=== PATIENT | male | born 1930 | race Caucasian/White ===

== ENCOUNTER 2018-02-15 11:48 | Emergency (ER) | payer MEDICARE, OTHER ==
[~2018-02-15] VITALS: Ht 182.9 cm; Wt 86.2 kg
[~2018-02-15 11:48] MED LIST: ALBIPROI INH; AMOCLA500 PO; ASCO1ER PO; ASPI325; ASPI81EC; ASPI81EC PO; BUPR150ER PO; BUPR150T2 PO; CAPHYD; CARB50; CARB50 PO; CIPR500 PO; Cipro500 MG PO; DIGO.125 PO; DOCU100; DOCU100 PO; FERR325 PO; FINA5 PO; FLUO20 PO; FLUSAL5005 IH; FLUT.05NI; GLIM2 PO; GLIMEPIRIDE PO; HYDACE5 PO; Hair, Skin & N1 EACH PO; IRON PO; LIDO5TP TOP; LISI10; MESA400ER; MESA400ER PO; METO100ER; METO25ER PO; METO50 PO; METO50ER; METO50ER PO; Milk Of Ma400 MG/5 M PO; NEBI5 PO; NYST100SU MT; OMEP20ER PO; OXYACE7.5T PO; OXYC10ER PO; OXYC15ER PO; OXYC5 PO; PANT40 PO; PRED20 PO; PROM25 PO; RXHYDACE PO; TEMA30 PO; TETR250 PO
[2018-02-15 12:17] LABS: BASOPHILS ABSOLUTE AUTO 0.03 K/mm3 (0.00-0.23); BASOPHILS PERCENT AUTO 1 % (0-2); EOSINOPHILS ABSOLUTE AUTO 0.18 K/mm3 (0.00-0.68); EOSINOPHILS PERCENT AUTO 3 % (0-6); Hematocrit 37.7 % (37.0-53.0); Hemoglobin 11.9 g/dL (13.5-17.5); IMMATURE GRAN ABSOLUTE AUTO 0.03 K/mm3 (0.00-0.10); IMMATURE GRAN PERCENT AUTO 1 % (0-1); LYMPHOCYTES ABSOLUTE AUTO 1.01 K/mm3 (0.84-5.20); LYMPHOCYTES PERCENT AUTO 16 % (21-46); MONOCYTES ABSOLUTE AUTO 0.57 K/mm3 (0.16-1.47); MONOCYTES PERCENT AUTO 9 % (4-13); Mean Corpuscular HGB Conc 31.6 g/dL (31.5-36.5); Mean Corpuscular Volume 92 fL (80-100); NEUTROPHILS ABSOLUTE AUTO 4.36 K/mm3 (1.96-9.15); NEUTROPHILS PERCENT AUTO 71 % (41-73); Platelet Count 197 K/mm3 (150-400); RDW Coefficient Variation 13.4 % (11.7-14.2); RDW Standard Deviation 45.8 fL (35.1-46.3); White Blood Cell Count 6.18 K/mm3 (4.00-11.30)
[2018-02-15 12:43] LABS: Alanine Aminotransfer (ALT/SGP 21 U/L (12-78); Albumin, Blood 3.3 g/dL (3.4-5.0); Albumin/Globulin Ratio 0.9 (0.8-1.8); Alk Phos 91 U/L (50-136); Anion Gap 5 mmol/L (6-16); Aspartate Aminotrans (AST/SGOT 20 U/L (12-37); Bilirubin, Total 0.3 mg/dL (0.1-1.0); Blood Urea Nitrogen 19 mg/dL (8-24); Bun/Creatinine Ratio 18.6 (12.0-20.0); CO2, Blood 31 mmol/L (21-32); Calcium, Blood 8.8 mg/dL (8.5-10.1); Chloride, Blood 103 mmol/L (98-108); Creatinine, Blood 1.02 mg/dL (0.60-1.20); Globulin, Blood 3.8 g/dL (2.2-4.0); Glomerular Filtration Rate >60 (60-); Glucose, Blood 166 mg/dL (70-99); Potassium, Blood 4.3 mmol/L (3.5-5.5); Sodium, Blood 139 mmol/L (136-145); Total Protein, Blood 7.1 g/dL (6.4-8.2); Troponin I <0.015 ng/mL (0.000-0.040)
[2018-02-15] MEDS ORDERED: OXYC1TAB11 (12:56)
[2018-02-15 13:55] LABS: International Normalized Ratio 0.96
== END 2018-02-15 14:14 | disposition left against medical advice (07) ==
LOC: ER 11:48
PROVIDERS: Emergency Medicine
DX: R41.0 Disorientation, unspecified (principal); Z88.2 Allergy status to sulfonamides; Z79.82 Long term (current) use of aspirin; Z79.899 Other long term (current) drug therapy; Z79.891 Long term (current) use of opiate analgesic; Z79.2 Long term (current) use of antibiotics; Z87.891 Personal history of nicotine dependence
CPT/HCPCS: 36415; 71046; 80053; 84484; 85025; 85610; 93005; 93010; 99283

== ENCOUNTER 2018-06-13 13:50 | Day surgery (SDC) | payer MEDICARE, OTHER ==
[~2018-06-13] VITALS: Ht 182.9 cm; Wt 93.1 kg
[~2018-06-13 13:50] MED LIST changes: +OXYC1TAB11
== END 2018-06-13 15:18 | disposition home or self-care (01) ==
LOC: ORSCSDS 13:50
PROVIDERS: Anesthesiology
PROC: 3E0R33Z Introduction of Anti-inflammatory into Spinal Canal, Percutaneous Approach (ICD-10-PCS; principal; 2018-06-13 15:15)
DX: M51.16 Intervertebral disc disorders with radiculopathy, lumbar region (principal); E11.9 Type 2 diabetes mellitus without complications; I25.10 Atherosclerotic heart disease of native coronary artery without angina pectoris; Z95.0 Presence of cardiac pacemaker; I48.91 Unspecified atrial fibrillation; J45.909 Unspecified asthma, uncomplicated; Z87.891 Personal history of nicotine dependence; Z79.82 Long term (current) use of aspirin; Z79.899 Other long term (current) drug therapy
CPT/HCPCS: J1040; J2001

== ENCOUNTER 2018-07-17 11:22 | Emergency (ER) | payer MEDICARE, OTHER ==
[~2018-07-17] VITALS: Ht 182.9 cm; Wt 90.7 kg
[2018-07-17] MEDS ORDERED: LIDO5TO TOP (12:09)
[2018-07-17] MEDS ORDERED: ASPI81CH PO (12:09)
[2018-07-17] MEDS ORDERED: METO50ER PO (12:09)
[2018-07-17] MEDS ORDERED: Hair, Skin & N1 EACH PO (12:09)
== END 2018-07-17 14:16 | disposition home or self-care (01) ==
LOC: ER 11:22
DX: M25.511 Pain in right shoulder (principal); G89.29 Other chronic pain; Z88.2 Allergy status to sulfonamides; Z88.8 Allergy status to other drugs, medicaments and biological substances; Z79.899 Other long term (current) drug therapy; Z79.82 Long term (current) use of aspirin; Z87.891 Personal history of nicotine dependence
CPT/HCPCS: 99282

== ENCOUNTER 2018-07-19 12:19 | Inpatient (IN) | payer MEDICARE, OTHER ==
[~2018-07-19] VITALS: Ht 182.9 cm; Wt 99.8 kg
[~2018-07-19 12:19] MED LIST changes: +ASPI81CH PO; +LIDO5TO TOP
[2018-07-19 12:36] LABS: BASOPHILS ABSOLUTE AUTO 0.02 K/mm3 (0.00-0.23); BASOPHILS PERCENT AUTO 0 % (0-2); EOSINOPHILS ABSOLUTE AUTO 0.01 K/mm3 (0.00-0.68); EOSINOPHILS PERCENT AUTO 0 % (0-6); Hematocrit 36.3 % (37.0-53.0); Hemoglobin 11.6 g/dL (13.5-17.5); IMMATURE GRAN ABSOLUTE AUTO 0.11 K/mm3 (0.00-0.10); IMMATURE GRAN PERCENT AUTO 1 % (0-1); LYMPHOCYTES ABSOLUTE AUTO 0.28 K/mm3 (0.84-5.20); LYMPHOCYTES PERCENT AUTO 2 % (21-46); MONOCYTES ABSOLUTE AUTO 0.99 K/mm3 (0.16-1.47); MONOCYTES PERCENT AUTO 5 % (4-13); Mean Corpuscular HGB 29.7 pg (26.0-34.0); Mean Corpuscular Volume 93 fL (80-100); Mean Platelet Volume 9.9 fL (9.1-12.4); NEUTROPHILS ABSOLUTE AUTO 17.29 K/mm3 (1.96-9.15); NEUTROPHILS PERCENT AUTO 92 % (41-73); Platelet Count 169 K/mm3 (150-400); RDW Coefficient Variation 13.5 % (11.7-14.2); RDW Standard Deviation 46.2 fL (35.1-46.3)
[2018-07-19 12:50] LABS: Alanine Aminotransfer (ALT/SGP 23 U/L (12-78); Albumin/Globulin Ratio 0.8 (0.8-1.8); Alk Phos 81 U/L (50-136); Anion Gap 6 mmol/L (6-16); Aspartate Aminotrans (AST/SGOT 20 U/L (12-37); Bilirubin, Total 0.7 mg/dL (0.1-1.0); Blood Urea Nitrogen 16 mg/dL (8-24); Bun/Creatinine Ratio 15.2 (12.0-20.0); CO2, Blood 30 mmol/L (21-32); Calcium, Blood 8.2 mg/dL (8.5-10.1); Chloride, Blood 99 mmol/L (98-108); Creatinine, Blood 1.05 mg/dL (0.60-1.20); Globulin, Blood 3.6 g/dL (2.2-4.0); Glomerular Filtration Rate >60 (60-); Glucose, Blood 183 mg/dL (70-99); Potassium, Blood 4.2 mmol/L (3.5-5.5); Sodium, Blood 135 mmol/L (136-145); Total Protein, Blood 6.6 g/dL (6.4-8.2)
[2018-07-19 12:51] LABS: International Normalized Ratio 1.01; Prothrombin Time Results 10.4 Sec (9.7-11.5)
[2018-07-19 14:24] LABS: Source, Urine Catheter
[2018-07-19 14:29] LABS: Appearance, Urine Clear (Clear); Bilirubin, Urine Neg (Neg); Blood, Urine 1+ (Neg); Color, Urine Yellow (P-Yellow); Glucose Qualitative, Urine 1+ (Neg); Ketones, Urine Neg (Neg); Leukocyte Esterase, Urine 2+ (Neg); Nitrite, Urine Neg (Neg); Protein, Urine 1+ (Neg); Urobilinogen, Urine NORM (Normal)
[2018-07-19 15:07] LABS: Bacteria Few /hpf; Squamous Epithelial Cells Few /hpf (Few); Transitional Epithelial Cells Rare /hpf (0-Rare); White Blood Cells, Urine 25-50 /hpf (0-5)
[2018-07-20 05:51] LABS: BASOPHILS ABSOLUTE AUTO 0.02 K/mm3 (0.00-0.23); BASOPHILS PERCENT AUTO 0 % (0-2); EOSINOPHILS ABSOLUTE AUTO 0.01 K/mm3 (0.00-0.68); EOSINOPHILS PERCENT AUTO 0 % (0-6); Hemoglobin 10.8 g/dL (13.5-17.5); IMMATURE GRAN ABSOLUTE AUTO 0.07 K/mm3 (0.00-0.10); IMMATURE GRAN PERCENT AUTO 1 % (0-1); LYMPHOCYTES ABSOLUTE AUTO 0.68 K/mm3 (0.84-5.20); LYMPHOCYTES PERCENT AUTO 5 % (21-46); MONOCYTES ABSOLUTE AUTO 0.83 K/mm3 (0.16-1.47); MONOCYTES PERCENT AUTO 6 % (4-13); Mean Corpuscular HGB 29.1 pg (26.0-34.0); Mean Corpuscular HGB Conc 31.8 g/dL (31.5-36.5); Mean Corpuscular Volume 92 fL (80-100); Mean Platelet Volume 10.4 fL (9.1-12.4); NEUTROPHILS ABSOLUTE AUTO 13.04 K/mm3 (1.96-9.15); NEUTROPHILS PERCENT AUTO 89 % (41-73); Platelet Count 172 K/mm3 (150-400); RDW Coefficient Variation 13.5 % (11.7-14.2); RDW Standard Deviation 45.4 fL (35.1-46.3); Red Blood Cell Count 3.71 M/mm3 (4.30-5.90); White Blood Cell Count 14.65 K/mm3 (4.00-11.30)
[2018-07-20 06:24] LABS: Alanine Aminotransfer (ALT/SGP 21 U/L (12-78); Albumin, Blood 2.7 g/dL (3.4-5.0); Albumin/Globulin Ratio 0.8 (0.8-1.8); Alk Phos 68 U/L (50-136); Anion Gap 6 mmol/L (6-16); Aspartate Aminotrans (AST/SGOT 23 U/L (12-37); Blood Urea Nitrogen 15 mg/dL (8-24); Bun/Creatinine Ratio 15.6 (12.0-20.0); CO2, Blood 30 mmol/L (21-32); Calcium, Blood 8.5 mg/dL (8.5-10.1); Chloride, Blood 102 mmol/L (98-108); Creatinine, Blood 0.96 mg/dL (0.60-1.20); Globulin, Blood 3.6 g/dL (2.2-4.0); Glomerular Filtration Rate >60 (60-); Glucose, Blood 106 mg/dL (70-99); Potassium, Blood 3.6 mmol/L (3.5-5.5); Sodium, Blood 138 mmol/L (136-145); Total Protein, Blood 6.3 g/dL (6.4-8.2); Troponin I <0.015 ng/mL (0.000-0.040)
[2018-07-20 12:08] LABS: PCO2 Arterial 42.1 mmHg (35-45); PO2 Arterial 61.8 mmHg (80-100)
[2018-07-21 09:33] LABS: BASOPHILS ABSOLUTE AUTO 0.02 K/mm3 (0.00-0.23); BASOPHILS PERCENT AUTO 0 % (0-2); EOSINOPHILS ABSOLUTE AUTO 0.03 K/mm3 (0.00-0.68); EOSINOPHILS PERCENT AUTO 0 % (0-6); Hematocrit 39.2 % (37.0-53.0); Hemoglobin 12.5 g/dL (13.5-17.5); IMMATURE GRAN ABSOLUTE AUTO 0.07 K/mm3 (0.00-0.10); IMMATURE GRAN PERCENT AUTO 1 % (0-1); LYMPHOCYTES ABSOLUTE AUTO 0.52 K/mm3 (0.84-5.20); LYMPHOCYTES PERCENT AUTO 4 % (21-46); MONOCYTES ABSOLUTE AUTO 0.71 K/mm3 (0.16-1.47); MONOCYTES PERCENT AUTO 5 % (4-13); Mean Corpuscular HGB 29.5 pg (26.0-34.0); Mean Corpuscular HGB Conc 31.9 g/dL (31.5-36.5); Mean Corpuscular Volume 93 fL (80-100); Mean Platelet Volume 10.1 fL (9.1-12.4); NEUTROPHILS ABSOLUTE AUTO 12.52 K/mm3 (1.96-9.15); NEUTROPHILS PERCENT AUTO 90 % (41-73); Platelet Count 248 K/mm3 (150-400); RDW Coefficient Variation 13.5 % (11.7-14.2); RDW Standard Deviation 45.4 fL (35.1-46.3); Red Blood Cell Count 4.24 M/mm3 (4.30-5.90); White Blood Cell Count 13.87 K/mm3 (4.00-11.30)
[2018-07-21] MEDS ORDERED: METO50 PO (12:17)
[2018-07-21] MEDS ORDERED: ALBU3IS INH (12:19)
[2018-07-21] MEDS ORDERED: ACIDOPHILUS LA1 EACH PO (12:20)
[2018-07-21] MEDS ORDERED: FURO20 PO (12:21)
[2018-07-21] MEDS ORDERED: CEFD300 PO (12:21)
== END 2018-07-21 15:09 | disposition home health service (06) | DRG 689 ==
LOC: ER 12:19 → MEDS 14:00 → ENPENDDIS 07-21 11:58 → MEDS 07-21 15:09
PROVIDERS: Emergency Medicine; Internal Medicine
DX: N39.0 Urinary tract infection, site not specified (principal); G92 Toxic encephalopathy; J96.01 Acute respiratory failure with hypoxia; K51.90 Ulcerative colitis, unspecified, without complications; E87.1 Hypo-osmolality and hyponatremia; I48.2 Chronic atrial fibrillation; I25.10 Atherosclerotic heart disease of native coronary artery without angina pectoris; E78.5 Hyperlipidemia, unspecified; T40.2X5A Adverse effect of other opioids, initial encounter; G89.4 Chronic pain syndrome; Z51.5 Encounter for palliative care; J44.9 Chronic obstructive pulmonary disease, unspecified; Z95.1 Presence of aortocoronary bypass graft; Z95.0 Presence of cardiac pacemaker; Z79.82 Long term (current) use of aspirin; Z79.891 Long term (current) use of opiate analgesic; Z79.899 Other long term (current) drug therapy; Z88.2 Allergy status to sulfonamides; Z88.8 Allergy status to other drugs, medicaments and biological substances; Z87.891 Personal history of nicotine dependence
CPT/HCPCS: 36415; 36600; 51702; 70450; 71046; 80053; 81001; 82803; 83605; 83880; 84484; 85025; 85610; 85730; 87040; 87081; 87086; 92610; 93005; 93010; 93306; 94640; 94760; 96365; 96375; 97116; 97162; 97166; 97530; 97535; 99285-25; G8978; G8979; G8987; G8988; G8996; G8997; G8998; J0456; J0696; J1200; J1630; J1650; J1940; J7030; J7050

== ENCOUNTER 2018-10-22 14:32 | Emergency (ER) | payer MEDICARE, OTHER ==
[~2018-10-22] VITALS: Ht 182.9 cm; Wt 74.8 kg
[~2018-10-22 14:32] MED LIST changes: +ACIDOPHILUS LA1 EACH PO; -ALBIPROI INH; +ALBU3IS INH; -ASPI81CH PO; +Aspirin EC81 MG PO; +Budeprion Xl300 MG PO; +CEFD300 PO; +COMBIVENT RESPIM4 GM INH; -FLUSAL5005 IH; +FLUT1DIS5 INH; +FURO20 PO
[2018-10-22 15:26] LABS: BASOPHILS ABSOLUTE AUTO 0.02 K/mm3 (0.00-0.23); BASOPHILS PERCENT AUTO 0 % (0-2); EOSINOPHILS ABSOLUTE AUTO 0.08 K/mm3 (0.00-0.68); EOSINOPHILS PERCENT AUTO 1 % (0-6); Hematocrit 41.1 % (37.0-53.0); Hemoglobin 13.1 g/dL (13.5-17.5); IMMATURE GRAN ABSOLUTE AUTO 0.02 K/mm3 (0.00-0.10); IMMATURE GRAN PERCENT AUTO 0 % (0-1); LYMPHOCYTES ABSOLUTE AUTO 0.76 K/mm3 (0.84-5.20); LYMPHOCYTES PERCENT AUTO 13 % (21-46); MONOCYTES ABSOLUTE AUTO 0.58 K/mm3 (0.16-1.47); MONOCYTES PERCENT AUTO 10 % (4-13); Mean Corpuscular HGB Conc 31.9 g/dL (31.5-36.5); Mean Corpuscular Volume 94 fL (80-100); Mean Platelet Volume 10.3 fL (9.1-12.4); NEUTROPHILS ABSOLUTE AUTO 4.52 K/mm3 (1.96-9.15); NEUTROPHILS PERCENT AUTO 76 % (41-73); Platelet Count 177 K/mm3 (150-400); RDW Coefficient Variation 13.2 % (11.7-14.2); RDW Standard Deviation 45.7 fL (35.1-46.3); Red Blood Cell Count 4.36 M/mm3 (4.30-5.90); White Blood Cell Count 5.98 K/mm3 (4.00-11.30)
[2018-10-22 15:41] LABS: Alanine Aminotransfer (ALT/SGP 35 U/L (12-78); Albumin, Blood 3.5 g/dL (3.4-5.0); Albumin/Globulin Ratio 0.9 (0.8-1.8); Alk Phos 94 U/L (50-136); Anion Gap 6 mmol/L (6-16); Aspartate Aminotrans (AST/SGOT 29 U/L (12-37); Bilirubin, Total 0.6 mg/dL (0.1-1.0); Blood Urea Nitrogen 19 mg/dL (8-24); Bun/Creatinine Ratio 20.1 (12.0-20.0); CO2, Blood 29 mmol/L (21-32); Calcium, Blood 8.8 mg/dL (8.5-10.1); Chloride, Blood 102 mmol/L (98-108); Creatinine, Blood 0.95 mg/dL (0.60-1.20); Globulin, Blood 3.9 g/dL (2.2-4.0); Glomerular Filtration Rate >60 (60-); Glucose, Blood 135 mg/dL (70-99); Potassium, Blood 4.2 mmol/L (3.5-5.5); Sodium, Blood 137 mmol/L (136-145); Total Protein, Blood 7.4 g/dL (6.4-8.2); Troponin I <0.015 ng/mL (0.000-0.040)
== END 2018-10-22 17:21 | disposition home or self-care (01) ==
LOC: ER 14:32
PROVIDERS: Physician Assistant
DX: S46.001A Unspecified injury of muscle(s) and tendon(s) of the rotator cuff of right shoulder, initial encounter (principal); W19.XXXA Unspecified fall, initial encounter; I48.91 Unspecified atrial fibrillation; Z79.899 Other long term (current) drug therapy; Z79.82 Long term (current) use of aspirin
CPT/HCPCS: 36415; 71046; 73030; 80053; 84484; 85025; 96374; 99283-25; J3010

== ENCOUNTER 2018-11-27 10:40 | Inpatient (IN) | payer MEDICARE, OTHER ==
[~2018-11-27] VITALS: Ht 182.9 cm; Wt 77.7 kg
[2018-11-27 12:59] LABS: BASOPHILS ABSOLUTE AUTO 0.02 K/mm3 (0.00-0.23); BASOPHILS PERCENT AUTO 0 % (0-2); EOSINOPHILS PERCENT AUTO 1 % (0-6); Hemoglobin 11.7 g/dL (13.5-17.5); IMMATURE GRAN ABSOLUTE AUTO 0.04 K/mm3 (0.00-0.10); IMMATURE GRAN PERCENT AUTO 1 % (0-1); LYMPHOCYTES PERCENT AUTO 11 % (21-46); MONOCYTES ABSOLUTE AUTO 0.72 K/mm3 (0.16-1.47); MONOCYTES PERCENT AUTO 10 % (4-13); Mean Corpuscular HGB 30.6 pg (26.0-34.0); Mean Corpuscular HGB Conc 31.6 g/dL (31.5-36.5); Mean Corpuscular Volume 97 fL (80-100); Mean Platelet Volume 10.2 fL (9.1-12.4); NEUTROPHILS ABSOLUTE AUTO 5.72 K/mm3 (1.96-9.15); NEUTROPHILS PERCENT AUTO 77 % (41-73); Platelet Count 180 K/mm3 (150-400); RDW Coefficient Variation 13.6 % (11.7-14.2); RDW Standard Deviation 48.8 fL (35.1-46.3); Red Blood Cell Count 3.82 M/mm3 (4.30-5.90)
[2018-11-27 13:07] LABS: International Normalized Ratio 0.97; Prothrombin Time Results 10.3 Sec (9.7-11.5)
[2018-11-27 13:24] LABS: Alanine Aminotransfer (ALT/SGP 23 U/L (12-78); Albumin, Blood 3.3 g/dL (3.4-5.0); Alk Phos 77 U/L (50-136); Anion Gap 5 mmol/L (6-16); Aspartate Aminotrans (AST/SGOT 17 U/L (12-37); Bilirubin, Total 0.5 mg/dL (0.1-1.0); Blood Urea Nitrogen 15 mg/dL (8-24); Bun/Creatinine Ratio 14.9 (12.0-20.0); CO2, Blood 31 mmol/L (21-32); Calcium, Blood 8.9 mg/dL (8.5-10.1); Chloride, Blood 104 mmol/L (98-108); Creatinine, Blood 1.01 mg/dL (0.60-1.20); Globulin, Blood 3.3 g/dL (2.2-4.0); Glomerular Filtration Rate >60 (60-); Glucose, Blood 119 mg/dL (70-99); Potassium, Blood 4.1 mmol/L (3.5-5.5); Sodium, Blood 140 mmol/L (136-145); Total Protein, Blood 6.6 g/dL (6.4-8.2)
[2018-11-27] MEDS ORDERED: Percocet 10-321 EACH PO (13:29)
[2018-11-27 16:41] LABS: Source, Urine Catheter
[2018-11-27 16:49] LABS: Appearance, Urine Clear (Clear); Bilirubin, Urine Neg (Neg); Blood, Urine 5+ (Neg); Color, Urine Yellow (P-Yellow); Glucose Qualitative, Urine Neg (Neg); Ketones, Urine Neg (Neg); Leukocyte Esterase, Urine Neg (Neg); Nitrite, Urine Neg (Neg); Protein, Urine 1+ (Neg); Specific Gravity, Urine 1.025 (1.003-1.022); Urobilinogen, Urine NORM (Normal)
[2018-11-27 17:02] LABS: Red Blood Cells, Urine 25-50 /hpf (0-2); White Blood Cells, Urine 0-2 /hpf (0-5)
[2018-11-27 17:03] LABS: Bacteria Not Seen /hpf; Squamous Epithelial Cells Rare /hpf (Few)
--- NOTE | 2018-11-27 20:14 | NUR ---
STUDENT PERMISSION PT GAVE STUDENT VERBAL PERMISSION TO ASSIST WITH HIS CARE ON 11/28/18
[2018-11-28 02:06] LABS: Source, Urine Catheter
[2018-11-28 02:13] LABS: Appearance, Urine Turbid (Clear); Bilirubin, Urine Neg (Neg); Blood, Urine 5+ (Neg); Color, Urine Brown (P-Yellow); Glucose Qualitative, Urine Neg (Neg); Ketones, Urine 1+ (Neg); Leukocyte Esterase, Urine 1+ (Neg); Nitrite, Urine Neg (Neg); Protein, Urine 4+ (Neg); Urobilinogen, Urine NORM (Normal)
[2018-11-28 02:19] LABS: Amorphous Light (0-Heavy); Bacteria Many /hpf; Red Blood Cells, Urine TNTC /hpf (0-2); Squamous Epithelial Cells Rare /hpf (Few)
[2018-11-28 05:43] LABS: BASOPHILS ABSOLUTE AUTO 0.02 K/mm3 (0.00-0.23); BASOPHILS PERCENT AUTO 0 % (0-2); EOSINOPHILS ABSOLUTE AUTO 0.12 K/mm3 (0.00-0.68); EOSINOPHILS PERCENT AUTO 1 % (0-6); Hematocrit 34.3 % (37.0-53.0); Hemoglobin 10.9 g/dL (13.5-17.5); IMMATURE GRAN ABSOLUTE AUTO 0.03 K/mm3 (0.00-0.10); IMMATURE GRAN PERCENT AUTO 0 % (0-1); LYMPHOCYTES ABSOLUTE AUTO 0.59 K/mm3 (0.84-5.20); LYMPHOCYTES PERCENT AUTO 7 % (21-46); MONOCYTES ABSOLUTE AUTO 0.87 K/mm3 (0.16-1.47); MONOCYTES PERCENT AUTO 10 % (4-13); Mean Corpuscular HGB 30.4 pg (26.0-34.0); Mean Corpuscular HGB Conc 31.8 g/dL (31.5-36.5); Mean Corpuscular Volume 96 fL (80-100); Mean Platelet Volume 10.3 fL (9.1-12.4); NEUTROPHILS ABSOLUTE AUTO 7.14 K/mm3 (1.96-9.15); NEUTROPHILS PERCENT AUTO 82 % (41-73); Platelet Count 143 K/mm3 (150-400); RDW Coefficient Variation 13.5 % (11.7-14.2); RDW Standard Deviation 47.9 fL (35.1-46.3); Red Blood Cell Count 3.59 M/mm3 (4.30-5.90); White Blood Cell Count 8.77 K/mm3 (4.00-11.30)
[2018-11-28 05:56] LABS: Prothrombin Time Results 10.6 Sec (9.7-11.5)
[2018-11-28 05:57] LABS: Anion Gap 5 mmol/L (6-16); Blood Urea Nitrogen 12 mg/dL (8-24); Bun/Creatinine Ratio 12.6 (12.0-20.0); CO2, Blood 30 mmol/L (21-32); Calcium, Blood 8.1 mg/dL (8.5-10.1); Chloride, Blood 102 mmol/L (98-108); Creatinine, Blood 0.95 mg/dL (0.60-1.20); Glomerular Filtration Rate >60 (60-); Glucose, Blood 136 mg/dL (70-99); Sodium, Blood 137 mmol/L (136-145)
--- NOTE | 2018-11-28 06:28 | NUR ---
LYING IN LOW FOWLERS WITH EYES CLOSED. PAIN MED PARTIALLY EFFECTIVE, DENIES FURTHER PAIN AT THIS TIME. FREQUENTLY REPOSITIONED FOR COMFORT. CONTUSIONS TO LEFT HIP, NO CREPITIS, AND GOOD DISTAL PULSES NOTED. NONBLANCHABLE REDNESS NOTED TO COCCYX/SACRAL AREA, MEPILEX PLACED FOR COMFORT. DENIES FUTHER NEEDS AT THIS TIME. SAFETY MEASURES IN PLACE. WILL GIVE HAND OFF TO ONCOMING SHIFT USING SBAR.
--- NOTE | 2018-11-28 14:11 | NUR ---
therapy: PT IN ROOM TO WORK WITH PATIENT. MEDICATED FOR PAIN PRN. PT REFUSED HEAPRIN.
--- NOTE | 2018-11-28 14:44 | NUR ---
GUARDADO CATHETER REMOVED, WNL, 500 MLS IN BAG. PT TOLERATED WELL.
--- NOTE | 2018-11-28 17:04 | NUR ---
SHIFT SUMMARY PT A&OX4, VSS. CONSULT W/SURGEON COMPLETE, SEE NOTE. PHYSICAL THERAPY EVAL'D PT. UP TO CHAIR. PAIN MANAGED PER EMAR. KADEEM PO, DENIES N&V, NEEDS ASSISTANCE WITH MEALS R/T SHOULDER PAIN. REFUSING HEPARIN AND BREATHING TREATMENTS. GUARDADO OUT AT 1444, STILL NEEDS TO VOID. WILL CTM & TX PER EMAR UNTIL REPORT GIVEN TO ONCOMING MARTIN RN.
--- NOTE | 2018-11-29 05:20 | NUR ---
OSTOMY PRODUCT CHANGED AFTER LEAKAGE NOTED AND PT CLEANED. SAFETY MEASURES IN PLACE. WILL CONTINUE TO MONITOR.
--- NOTE | 2018-11-29 19:29 | NUR ---
SHIFT SUMMARY PT COOPERATIVE WITH CARE, VSS. PAIN MANAGED PER EMAR. KADEEM PO. OSTOMY OUTPUT GOOD, VOIDING WELL. KADEEM PO, DENIES N&V. PLAN IS FOR DC TO HOME TOMORROW, FAMILY HAS A MTG WITH [facility] [employer] AT 1100. REPORT GIVEN TO CASSIA MANCERA.
--- NOTE | 2018-11-30 05:57 | NUR ---
SHIFT SUMMARY PT REMAINS ON FLOOR FOR NONSURGICAL R FEMUR FX AROUND PREVIOUS PROSTHETIC AND TORN ROTATOR CUFF OF THE RIGHT SHOULDER. PT AND FAMILY WILL MEET WITH THE CARE ANGLESMITH TODAY TO DETERMINE THE BEST PLACEMENT FOR HIM POST-HOSPITALIZATION. PT IS A&O, ABLE TO MAKE NEEDS KNOWN. FREQUENT CALLS. HE HAD SOME DIFFICULTY URINATING LAST NIGHT AND GOES SMALL AMOUNTS AT A TIME. PT WAS AWAKE MOST OF THE NIGHT AND BECAME ANXIOUS AND PAINFUL, SO HE WAS MEDICATED AND THEN SAT UP IN THE CHAIR FOR A FEW HOURS AND FELT BETTER. WILL CTM UNTIL PASS TO NEXT SHIFT.
--- NOTE | 2018-11-30 17:23 | NUR ---
PATIENT D/C'D TO [facility] AT 1710. REPORT CALLED TO ELSA BARRERA AT THIS TIME. NO ACUTE CHANGES OR C/O.
== END 2018-11-30 17:30 | DRG 560 ==
LOC: ER 10:40 → MEDS 13:16 → SURS 13:16
PROVIDERS: Emergency Medicine; ADMIT Internal Medicine
DX: M97.8XXA Periprosthetic fracture around other internal prosthetic joint, initial encounter (principal); F11.20 Opioid dependence, uncomplicated; E78.5 Hyperlipidemia, unspecified; G89.4 Chronic pain syndrome; I25.10 Atherosclerotic heart disease of native coronary artery without angina pectoris; I48.2 Chronic atrial fibrillation; J44.9 Chronic obstructive pulmonary disease, unspecified; Z95.0 Presence of cardiac pacemaker; Z95.1 Presence of aortocoronary bypass graft; Z91.81 History of falling; W01.0XXA Fall on same level from slipping, tripping and stumbling without subsequent striking against object, initial encounter; Z79.82 Long term (current) use of aspirin; Z93.3 Colostomy status; Z88.2 Allergy status to sulfonamides; M25.511 Pain in right shoulder
CPT/HCPCS: 36415; 71045; 73030; 73502; 80048; 80053; 81001; 85025; 85610; 85730; 87081; 87086; 93005; 93010; 97110; 97116; 97162; 97166; 97530; 97535; 99285-25; J1170

== ENCOUNTER 2018-12-05 09:55 | Emergency (ER) | payer MEDICARE, OTHER ==
[~2018-12-05] VITALS: Ht 182.9 cm; Wt 85.7 kg
[~2018-12-05 09:55] MED LIST changes: +Percocet 10-321 EACH PO
[2018-12-05 11:35] LABS: BASOPHILS ABSOLUTE AUTO 0.04 K/mm3 (0.00-0.23); BASOPHILS PERCENT AUTO 0 % (0-2); EOSINOPHILS ABSOLUTE AUTO 0.13 K/mm3 (0.00-0.68); EOSINOPHILS PERCENT AUTO 1 % (0-6); Hemoglobin 11.3 g/dL (13.5-17.5); IMMATURE GRAN ABSOLUTE AUTO 0.06 K/mm3 (0.00-0.10); IMMATURE GRAN PERCENT AUTO 1 % (0-1); LYMPHOCYTES ABSOLUTE AUTO 0.68 K/mm3 (0.84-5.20); LYMPHOCYTES PERCENT AUTO 7 % (21-46); MONOCYTES ABSOLUTE AUTO 0.76 K/mm3 (0.16-1.47); MONOCYTES PERCENT AUTO 8 % (4-13); Mean Corpuscular HGB 30.3 pg (26.0-34.0); Mean Corpuscular HGB Conc 32.3 g/dL (31.5-36.5); Mean Corpuscular Volume 94 fL (80-100); Mean Platelet Volume 10.2 fL (9.1-12.4); NEUTROPHILS ABSOLUTE AUTO 7.46 K/mm3 (1.96-9.15); NEUTROPHILS PERCENT AUTO 82 % (41-73); Platelet Count 212 K/mm3 (150-400); RDW Coefficient Variation 13.3 % (11.7-14.2); RDW Standard Deviation 45.8 fL (35.1-46.3); Red Blood Cell Count 3.73 M/mm3 (4.30-5.90); White Blood Cell Count 9.13 K/mm3 (4.00-11.30)
[2018-12-05 11:56] LABS: Alanine Aminotransfer (ALT/SGP 29 U/L (12-78); Albumin, Blood 3.1 g/dL (3.4-5.0); Albumin/Globulin Ratio 0.9 (0.8-1.8); Alk Phos 88 U/L (50-136); Anion Gap 7 mmol/L (6-16); Aspartate Aminotrans (AST/SGOT 31 U/L (12-37); Bilirubin, Total 0.6 mg/dL (0.1-1.0); Blood Urea Nitrogen 14 mg/dL (8-24); Bun/Creatinine Ratio 14.5 (12.0-20.0); CO2, Blood 31 mmol/L (21-32); Calcium, Blood 8.9 mg/dL (8.5-10.1); Chloride, Blood 97 mmol/L (98-108); Creatinine, Blood 0.97 mg/dL (0.60-1.20); Globulin, Blood 3.6 g/dL (2.2-4.0); Glomerular Filtration Rate >60 (60-); Glucose, Blood 140 mg/dL (70-99); Potassium, Blood 3.9 mmol/L (3.5-5.5); Sodium, Blood 135 mmol/L (136-145); Total Protein, Blood 6.7 g/dL (6.4-8.2); Troponin I <0.015 ng/mL (0.000-0.040)
== END 2018-12-05 12:33 | disposition home or self-care (01) ==
LOC: ER 09:55
PROVIDERS: Emergency Medicine
DX: R07.89 Other chest pain (principal); I48.91 Unspecified atrial fibrillation; I25.10 Atherosclerotic heart disease of native coronary artery without angina pectoris; Z95.1 Presence of aortocoronary bypass graft; Z88.2 Allergy status to sulfonamides; Z88.8 Allergy status to other drugs, medicaments and biological substances; Z79.82 Long term (current) use of aspirin; Z79.899 Other long term (current) drug therapy
CPT/HCPCS: 36415; 71045; 80053; 84484; 85025; 93005; 93010; 99285-25

== ENCOUNTER → 2018-12-26 | Outpatient (CLI) | payer MEDICARE, OTHER | LOC: LAB EV 11:17 → LAB SHORT 11:17 | DX: R30.0 Dysuria (principal) | CPT/HCPCS: 87086 ==

== ENCOUNTER → 2019-03-06 | Outpatient (CLI) | payer MEDICARE, OTHER ==
[2019-03-06 10:55] LABS: BASOPHILS ABSOLUTE AUTO 0.03 K/mm3 (0.00-0.23); BASOPHILS PERCENT AUTO 0 % (0-2); EOSINOPHILS ABSOLUTE AUTO 0.19 K/mm3 (0.00-0.68); EOSINOPHILS PERCENT AUTO 2 % (0-6); Hematocrit 31.1 % (37.0-53.0); Hemoglobin 9.8 g/dL (13.5-17.5); IMMATURE GRAN ABSOLUTE AUTO 0.04 K/mm3 (0.00-0.10); IMMATURE GRAN PERCENT AUTO 1 % (0-1); LYMPHOCYTES ABSOLUTE AUTO 0.98 K/mm3 (0.84-5.20); LYMPHOCYTES PERCENT AUTO 13 % (21-46); MONOCYTES ABSOLUTE AUTO 0.57 K/mm3 (0.16-1.47); MONOCYTES PERCENT AUTO 7 % (4-13); Mean Corpuscular HGB 29.4 pg (26.0-34.0); Mean Corpuscular HGB Conc 31.5 g/dL (31.5-36.5); Mean Corpuscular Volume 93 fL (80-100); Mean Platelet Volume 9.6 fL (9.1-12.4); NEUTROPHILS ABSOLUTE AUTO 5.98 K/mm3 (1.96-9.15); NEUTROPHILS PERCENT AUTO 77 % (41-73); Platelet Count 229 K/mm3 (150-400); RDW Coefficient Variation 13.2 % (11.7-14.2); RDW Standard Deviation 44.7 fL (35.1-46.3); Red Blood Cell Count 3.33 M/mm3 (4.30-5.90); White Blood Cell Count 7.79 K/mm3 (4.00-11.30)
== END | disposition home or self-care (01) ==
LOC: LAB SHORT 10:49 → LAB EV 10:49
PROVIDERS: Physician Assistant
DX: S30.0XXA Contusion of lower back and pelvis, initial encounter (principal)
CPT/HCPCS: 85025

== ENCOUNTER 2019-03-14 09:09 | Emergency (ER) | payer MEDICARE, OTHER ==
[~2019-03-14] VITALS: Ht 182.9 cm; Wt 77.1 kg
[2019-03-14] MEDS ORDERED: COMBIVENT RESPIM4 GM INH (09:36)
[2019-03-14] MEDS ORDERED: CARV6.25 PO (09:36)
[2019-03-14] MEDS ORDERED: GABA300 PO (09:36)
[2019-03-14] MEDS ORDERED: FLUT1DIS8 (09:36)
[2019-03-14] MEDS ORDERED: LIDO5TO TOP (09:37)
[2019-03-14] MEDS ORDERED: GLIM2 PO (09:37)
[2019-03-14] MEDS ORDERED: BUPR150T2 (09:38)
[2019-03-14] MEDS ORDERED: OXYC40ER PO (09:38)
== END 2019-03-14 09:41 | disposition home or self-care (01) ==
LOC: ER 09:09
DX: S30.0XXA Contusion of lower back and pelvis, initial encounter (principal); S70.02XA Contusion of left hip, initial encounter; S70.01XA Contusion of right hip, initial encounter; W01.0XXA Fall on same level from slipping, tripping and stumbling without subsequent striking against object, initial encounter; Z88.2 Allergy status to sulfonamides; Z88.8 Allergy status to other drugs, medicaments and biological substances; Z79.899 Other long term (current) drug therapy; I48.91 Unspecified atrial fibrillation; Z87.891 Personal history of nicotine dependence
CPT/HCPCS: 99283

== ENCOUNTER → 2019-03-22 | Outpatient (CLI) | payer MEDICARE, OTHER ==
[~2019-03-22] MED LIST changes: +ACET325 PO; +AZIT500 PO; +Aspir 8181 MG PO; +CARV6.25 PO; +CEFP200 PO; +CITA20 PO; +FERSU300 PO; +FLUT1DIS8; +GABA300 PO; +OMEPRAZOLE20 MG PO; +OXYC40ER PO; +POTA10T PO; +Ventolin/Prove6.7 GM INH
== END | disposition home or self-care (01) ==
LOC: PLD 14:12 → LAB SHORT 14:12
DX: D04.4 Carcinoma in situ of skin of scalp and neck (principal)
CPT/HCPCS: 88305

== ENCOUNTER → 2019-03-27 | Outpatient (CLI) | payer MEDICARE, OTHER ==
[2019-03-27 14:13] LABS: Stool Occult Bld Immuno 1 Negative (NEGATIVE)
== END | disposition home or self-care (01) ==
LOC: LAB EV 06:00
PROVIDERS: Physician Assistant
DX: D64.9 Anemia, unspecified (principal)
CPT/HCPCS: 82274

== ENCOUNTER 2019-07-25 21:41 | Inpatient (IN) | payer MEDICARE, OTHER ==
[~2019-07-25] VITALS: Ht 182.9 cm; Wt 72.6 kg
[~2019-07-25 21:41] MED LIST changes: -ACET325 PO; -AZIT500 PO; -Aspir 8181 MG PO; -CEFP200 PO; -CITA20 PO; -FERSU300 PO; -OMEPRAZOLE20 MG PO; -POTA10T PO; -Ventolin/Prove6.7 GM INH
[2019-07-25 22:07] LABS: BASOPHILS ABSOLUTE AUTO 0.03 K/mm3 (0.00-0.23); BASOPHILS PERCENT AUTO 0 % (0-2); EOSINOPHILS ABSOLUTE AUTO 0.06 K/mm3 (0.00-0.68); EOSINOPHILS PERCENT AUTO 0 % (0-6); Hematocrit 34.9 % (37.0-53.0); IMMATURE GRAN ABSOLUTE AUTO 0.04 K/mm3 (0.00-0.10); IMMATURE GRAN PERCENT AUTO 0 % (0-1); LYMPHOCYTES ABSOLUTE AUTO 0.55 K/mm3 (0.84-5.20); LYMPHOCYTES PERCENT AUTO 4 % (21-46); MONOCYTES ABSOLUTE AUTO 0.98 K/mm3 (0.16-1.47); MONOCYTES PERCENT AUTO 7 % (4-13); Mean Corpuscular HGB 30.7 pg (26.0-34.0); Mean Corpuscular HGB Conc 31.5 g/dL (31.5-36.5); Mean Corpuscular Volume 98 fL (80-100); Mean Platelet Volume 9.8 fL (9.1-12.4); NEUTROPHILS ABSOLUTE AUTO 11.83 K/mm3 (1.96-9.15); NEUTROPHILS PERCENT AUTO 88 % (41-73); Platelet Count 178 K/mm3 (150-400); RDW Coefficient Variation 13.4 % (11.7-14.2); Red Blood Cell Count 3.58 M/mm3 (4.30-5.90); White Blood Cell Count 13.49 K/mm3 (4.00-11.30)
[2019-07-25 22:22] LABS: Alanine Aminotransfer (ALT/SGP 20 U/L (12-78); Albumin, Blood 3.4 g/dL (3.4-5.0); Alk Phos 83 U/L (50-136); Anion Gap 5 mmol/L (6-16); Aspartate Aminotrans (AST/SGOT 19 U/L (12-37); Bilirubin, Total 0.7 mg/dL (0.1-1.0); Blood Urea Nitrogen 16 mg/dL (8-24); Bun/Creatinine Ratio 17.1 (12.0-20.0); CO2, Blood 32 mmol/L (21-32); Calcium, Blood 8.9 mg/dL (8.5-10.1); Chloride, Blood 99 mmol/L (98-108); Creatinine, Blood 0.94 mg/dL (0.60-1.20); Globulin, Blood 3.5 g/dL (2.2-4.0); Glomerular Filtration Rate >60 (60-); Glucose, Blood 138 mg/dL (70-99); Potassium, Blood 4.1 mmol/L (3.5-5.5); Sodium, Blood 136 mmol/L (136-145); Total Protein, Blood 6.9 g/dL (6.4-8.2)
[2019-07-25] MEDS ORDERED: Aspir 8181 MG PO (22:23)
[2019-07-25] MEDS ORDERED: FURO20 PO (22:24)
[2019-07-25] MEDS ORDERED: METO50ER PO (22:24)
[2019-07-25] MEDS ORDERED: CITA20 PO (22:24)
[2019-07-25] MEDS ORDERED: OXYC15ER PO (22:25)
[2019-07-25] MEDS ORDERED: OMEPRAZOLE20 MG PO (22:25)
[2019-07-25] MEDS ORDERED: POTA10T PO (22:25)
[2019-07-25 23:23] LABS: Influenza A Negative (NEGATIVE); Influenza B Negative (NEGATIVE)
--- NOTE | 2019-07-26 01:30 | NUR ---
89 YR OLD MALE ADMITTED TOFLOOR FROM THE ED WITH DX OF PNEUMONIA. ELEVATED WBC. SOMEWHAT CONFUSED ON MEDICATIONS, IS TO COME IN IN THE AM, WILL HAVE AM NURSE FOLLOW UP WITH MEDS.
--- NOTE | 2019-07-26 02:33 | NUR ---
89 YR OLD MALE ADMITTED TO FLOOR FROM THE ED, DX PNEUMONIA. ASSESSMENT MOSTLY DONE, PT BECAME IRRITATED RE MED LIST, SEEMED EVEN UNFAMILIAR WITH IT. MEDS TO BE ASSESSED IN THE AM WHEN IS SUPPOSED TO VISIT. PT VOICED HE WASNTE TO SLEEP, SO ASSESSMENT WAS ENDED. ORIENTED TO CALL LIGHT AND AGREED NOT TO TRY TO GET OUT OF BED WITHOUT ASSIST.
[2019-07-26 05:13] LABS: Hematocrit 33.9 % (37.0-53.0); Hemoglobin 10.4 g/dL (13.5-17.5); Mean Corpuscular HGB 30.1 pg (26.0-34.0); Mean Corpuscular HGB Conc 30.7 g/dL (31.5-36.5); Mean Corpuscular Volume 98 fL (80-100); Mean Platelet Volume 10.2 fL (9.1-12.4); Platelet Count 179 K/mm3 (150-400); RDW Coefficient Variation 13.6 % (11.7-14.2); RDW Standard Deviation 49.2 fL (35.1-46.3); Red Blood Cell Count 3.45 M/mm3 (4.30-5.90); White Blood Cell Count 14.27 K/mm3 (4.00-11.30)
[2019-07-26 05:40] LABS: Alanine Aminotransfer (ALT/SGP 18 U/L (12-78); Albumin, Blood 3.1 g/dL (3.4-5.0); Albumin/Globulin Ratio 0.9 (0.8-1.8); Alk Phos 75 U/L (50-136); Anion Gap 7 mmol/L (6-16); Aspartate Aminotrans (AST/SGOT 14 U/L (12-37); Bilirubin, Total 0.6 mg/dL (0.1-1.0); Blood Urea Nitrogen 14 mg/dL (8-24); CO2, Blood 29 mmol/L (21-32); Calcium, Blood 8.5 mg/dL (8.5-10.1); Chloride, Blood 100 mmol/L (98-108); Creatinine, Blood 0.87 mg/dL (0.60-1.20); Globulin, Blood 3.4 g/dL (2.2-4.0); Glomerular Filtration Rate >60 (60-); Glucose, Blood 174 mg/dL (70-99); Potassium, Blood 3.7 mmol/L (3.5-5.5); Sodium, Blood 136 mmol/L (136-145); Total Protein, Blood 6.5 g/dL (6.4-8.2)
--- NOTE | 2019-07-26 05:50 | NUR ---
PT RESTLESS AT INTERVALS IN BED, ASSISTED TO RECLINER AT BEDSIDE AND RECEIVED ANALGESICS ORDERED BY MD. VOICED THAT THE FENTANYL HELPED, BUT WAS A LITTLE "LOOPY". AGREED TO NOT GET UP. NO NOTED DISTRESS. CALL LIGHT IN REACH.
[2019-07-26] MEDS ORDERED: FERSU300 PO (09:02)
[2019-07-26] MEDS ORDERED: Percocet 10-321 EACH PO (09:03)
[2019-07-26 15:26] LABS: Adenovirus Not Detected (NOT DETECT); Bordetella pertussis Not Detected (NOT DETECT); Chlamydophila pneumoniae Not Detected (NOT DETECT); Coronavirus 229E Not Detected (NOT DETECT); Coronavirus HKU1 Not Detected (NOT DETECT); Coronavirus NL63 Not Detected (NOT DETECT); Coronavirus OC43 Not Detected (NOT DETECT); Human Metapneumovirus Not Detected (NOT DETECT); Human Rhinovirus/Enterovirus Not Detected (NOT DETECT); Influenza A Not Detected (NOT DETECT); Influenza A/2009-H1 Not Detected (NOT DETECT); Influenza A/H1 Not Detected (NOT DETECT); Influenza A/H3 Not Detected (NOT DETECT); Influenza B Not Detected (NOT DETECT); Mycoplasma pneumoniae Not Detected (NOT DETECT); Parainfluenza Virus 1 Not Detected (NOT DETECT); Parainfluenza Virus 2 Not Detected (NOT DETECT); Parainfluenza Virus 3 Not Detected (NOT DETECT); Parainfluenza Virus 4 Not Detected (NOT DETECT); Respiratory Syncytial Virus Not Detected (NOT DETECT)
--- NOTE | 2019-07-26 16:46 | NUR ---
SHIFT SUMMARY: PT WAS VERY CONFUSED THIS MORNING AT CHANGE OF SHIFT BUT AFTER ASSISTING HIM WITH SOMETHING TO EAT AND DRINK AND HIS MORNING PILLS HE BECAME MUCH MORE LUCID. PT IS NOW A/O X 4 ALTHOUGH HE IS AGITATED ABOUT BEING IN THE HOSPITAL, AND WANTS TO GO HOME. PT HAS BEEN UP TO THE CHAIR WITH THE CHAIR ALARM ALL DAY. COLOSTOMY BAG IS INTACT. UA WAS NOT COLLECTED DUE TO HIM BEING INC ALL DAY. PT HAS BEEN COOPERATIVE WITH HIS CARE AND USES HIS CALL LIGHT FOR HELP WHEN NEEDED. NO S/S OF RESPIRATORY DISTRESS. FAMILY HAS VISITED ON AND OFF TODAY.
[2019-07-26 21:36] LABS: Source, Urine Clean Catch
[2019-07-26 21:40] LABS: Bilirubin, Urine Neg (Neg); Blood, Urine Neg (Neg); Glucose Qualitative, Urine Neg (Neg); Ketones, Urine Neg (Neg); Leukocyte Esterase, Urine 2+ (Neg); Nitrite, Urine Neg (Neg); Protein, Urine Neg (Neg); Urobilinogen, Urine NORM (Normal)
[2019-07-26 21:54] LABS: Appearance, Urine Clear (Clear); Color, Urine Pale Yellow (P-Yellow); Red Blood Cells, Urine Not Seen /hpf (0-2)
[2019-07-26 21:55] LABS: Bacteria Mod /hpf; Squamous Epithelial Cells Rare /hpf (Few)
--- NOTE | 2019-07-27 05:30 | NUR ---
SHIFT SUMMARY PT HAS BEEN A&OX4 TONIGHT. SPEECH DIFFICULT TO UNDERSTAND AT TIMES D/T PRESSURED, FAST SPEAKING AND SLURRING OF WORDS AT TIMES. PT ON 2L VIA NC, LS COARSE T/O. PT C/O OF BURNING DURING URINATION. UA SENT TO LAB, CULTURE PENDING. ADMINISTERED OXYCODONE AND OXYCONTIN PER EMAR SCHEDULE, IV FENTANYL ADMINISTERED TWICE FOR BREAK THROUGH PAIN. PT REPORTS PAIN IS "A CONSTANT 7/10, ALL OVER". COLOSTOMY TO RLQ IS C/D/I. WILL CONT TO MONITOR AND PROVIDE CARE UNTIL PRESUMED BY ONCOMING RN.
--- NOTE | 2019-07-27 18:01 | NUR ---
NO ACUTE CHANGES NOTED. PATIENT IS VERY ANXIOUS TO GO HOME IN THE MORNING. PAIN IS CURRENTLY CONTROLLED WITH SCHEDULED MEDICATIONS. LUNG SOUNDS ARE DIMINISHED. OSTOMY IS PRODUCING DARKGREEN LOOKING STOOL, PATIENT SAID THAT HAPPENS OCCASIONALLY. NO OTHER ISSUES NOTED AT THIS TIME. WILL CONTINUE TO MONITOR FOR CHANGES.
[2019-07-28 04:44] LABS: BASOPHILS ABSOLUTE AUTO 0.01 K/mm3 (0.00-0.23); BASOPHILS PERCENT AUTO 0 % (0-2); EOSINOPHILS PERCENT AUTO 1 % (0-6); Hemoglobin 10.9 g/dL (13.5-17.5); IMMATURE GRAN ABSOLUTE AUTO 0.04 K/mm3 (0.00-0.10); IMMATURE GRAN PERCENT AUTO 1 % (0-1); LYMPHOCYTES ABSOLUTE AUTO 0.82 K/mm3 (0.84-5.20); LYMPHOCYTES PERCENT AUTO 10 % (21-46); MONOCYTES ABSOLUTE AUTO 0.69 K/mm3 (0.16-1.47); MONOCYTES PERCENT AUTO 8 % (4-13); Mean Corpuscular HGB 30.3 pg (26.0-34.0); Mean Corpuscular HGB Conc 31.1 g/dL (31.5-36.5); Mean Corpuscular Volume 97 fL (80-100); Mean Platelet Volume 9.8 fL (9.1-12.4); NEUTROPHILS ABSOLUTE AUTO 6.57 K/mm3 (1.96-9.15); NEUTROPHILS PERCENT AUTO 80 % (41-73); Platelet Count 176 K/mm3 (150-400); RDW Coefficient Variation 13.3 % (11.7-14.2); White Blood Cell Count 8.23 K/mm3 (4.00-11.30)
[2019-07-28 05:04] LABS: Anion Gap 6 mmol/L (6-16); Blood Urea Nitrogen 14 mg/dL (8-24); Bun/Creatinine Ratio 14.6 (12.0-20.0); CO2, Blood 32 mmol/L (21-32); Chloride, Blood 101 mmol/L (98-108); Creatinine, Blood 0.96 mg/dL (0.60-1.20); Glomerular Filtration Rate >60 (60-); Glucose, Blood 100 mg/dL (70-99); Potassium, Blood 3.7 mmol/L (3.5-5.5); Sodium, Blood 139 mmol/L (136-145)
--- NOTE | 2019-07-28 05:24 | NUR ---
SHIFT SUMMARY NO ACUTE EVENTS OVERNIGHT. OSTOMY SITE CLEANSED AND NEW APPLIANCE APPLIED TONIGHT. ADMINISTERED SCHEDULED OXYCODONE AND OXYCONTIN PER EMAR ORDERS, WELL 25 MCG IV FENTANYL ONCE FOR BREAK THROUGH PAIN. LS COARSE THROUGHOUT; PT ON 2L VIA NC; DENIES SOB. PT IS A&OX4, BED ALARM/CHAIR ALARM ON FOR SAFETY D/T IMPULSIVITY. CALLS APPROP. IV ROCEPHIN AND IV AZITHROMYCIN ADMINISTERED PER EMAR ORDERS. PT TO POSS D/C HOME TODAY. WILL CONT TO MONITOR AND PROVIDE CARE UNTIL PRESUMED BY ONCOMING RN.
[2019-07-28] MEDS ORDERED: ACET325 PO (12:12)
[2019-07-28] MEDS ORDERED: AZIT500 PO (12:13)
[2019-07-28] MEDS ORDERED: Ventolin/Prove6.7 GM INH (12:13)
[2019-07-28] MEDS ORDERED: CEFP200 PO (12:14)
--- NOTE | 2019-07-28 13:25 | NUR ---
DISCHARGE SUMMARY PT DSCHARGED HOME WITH HOME HEALTH. PT EDUCATED ON MEDICATIONS AND INSTRUCTED TO FOLLOW UP WITH PCP WITHIN ONE WEEK. PT AGREES AND THANKS NURSE FOR CARE. IV DC'D AND BELONGNINGS RETURNED. PT LEFT ROOM PRIOR TO THIS NOTE VIA WHEELCHAIR WITH AGED OR DISABLED CARE WORKER ESCORT. PT AND SPOUSE EDUCATED ON REDUCING TRIPPING HAZZARDS TO REDUCE FALLS AT HOME.
== END 2019-07-28 13:19 | disposition home health service (06) | DRG 193 ==
LOC: ER 21:41 → MEDS 07-26 → ER 07-26 00:55 → MEDS 07-26 00:55 → ENPENDDIS 07-28 11:35 → MEDS 07-28 13:19
PROVIDERS: Emergency Medicine; Family Medicine; ADMIT Internal Medicine
DX: J18.9 Pneumonia, unspecified organism (principal); J96.01 Acute respiratory failure with hypoxia; R65.20 Severe sepsis without septic shock; K51.90 Ulcerative colitis, unspecified, without complications; I48.20 Chronic atrial fibrillation, unspecified; J44.0 Chronic obstructive pulmonary disease with (acute) lower respiratory infection; Z66 Do not resuscitate; I25.10 Atherosclerotic heart disease of native coronary artery without angina pectoris; E78.5 Hyperlipidemia, unspecified; Z79.82 Long term (current) use of aspirin; Z93.3 Colostomy status; I49.3 Ventricular premature depolarization; Z95.0 Presence of cardiac pacemaker; G89.4 Chronic pain syndrome; M19.90 Unspecified osteoarthritis, unspecified site
CPT/HCPCS: 0099U; 36415; 71045; 71046; 80048; 80053; 81001; 83605; 83880; 85025; 85027; 87040; 87086; 87804; 92610; 93005; 93010; 94640; 94660; 94760; 94762; 96365; 96367; 97116; 97162; 97165; 97530; 97535; 99285-25; A9270; J0456; J0696; J1650; J3010; J7030; J7050

== ENCOUNTER 2019-11-25 14:01 | Emergency (ER) | payer MEDICARE, OTHER ==
[~2019-11-25] VITALS: Ht 190.5 cm; Wt 72.6 kg
[~2019-11-25 14:01] MED LIST changes: +ACET325 PO; +AZIT500 PO; +Aspir 8181 MG PO; +CEFP200 PO; +CITA20 PO; +FERSU300 PO; +OMEPRAZOLE20 MG PO; +POTA10T PO; +Ventolin/Prove6.7 GM INH
[2019-11-25 14:24] LABS: BASOPHILS ABSOLUTE AUTO 0.02 K/mm3 (0.00-0.23); BASOPHILS PERCENT AUTO 0 % (0-2); EOSINOPHILS ABSOLUTE AUTO 0.16 K/mm3 (0.00-0.68); EOSINOPHILS PERCENT AUTO 2 % (0-6); Hematocrit 38.1 % (37.0-53.0); Hemoglobin 11.7 g/dL (13.5-17.5); IMMATURE GRAN ABSOLUTE AUTO 0.02 K/mm3 (0.00-0.10); IMMATURE GRAN PERCENT AUTO 0 % (0-1); LYMPHOCYTES ABSOLUTE AUTO 0.87 K/mm3 (0.84-5.20); LYMPHOCYTES PERCENT AUTO 13 % (21-46); MONOCYTES ABSOLUTE AUTO 0.57 K/mm3 (0.16-1.47); MONOCYTES PERCENT AUTO 9 % (4-13); Mean Corpuscular HGB 29.4 pg (26.0-34.0); Mean Corpuscular HGB Conc 30.7 g/dL (31.5-36.5); Mean Corpuscular Volume 96 fL (80-100); NEUTROPHILS ABSOLUTE AUTO 5.07 K/mm3 (1.96-9.15); NEUTROPHILS PERCENT AUTO 76 % (41-73); Platelet Count 184 K/mm3 (150-400); RDW Coefficient Variation 12.9 % (11.7-14.2); RDW Standard Deviation 45.7 fL (35.1-46.3); Red Blood Cell Count 3.98 M/mm3 (4.30-5.90); White Blood Cell Count 6.71 K/mm3 (4.00-11.30)
[2019-11-25 14:26] LABS: Source, Urine Clean Catch
[2019-11-25 14:29] LABS: Bilirubin, Urine Neg (Neg); Blood, Urine 1+ (Neg); Glucose Qualitative, Urine Neg (Neg); Ketones, Urine Neg (Neg); Leukocyte Esterase, Urine 2+ (Neg); Nitrite, Urine Neg (Neg); Protein, Urine Neg (Neg); Urobilinogen, Urine NORM (Normal)
[2019-11-25 14:34] LABS: Appearance, Urine Clear (Clear); Color, Urine Yellow (P-Yellow)
[2019-11-25 14:36] LABS: Red Blood Cells, Urine 0-2 /hpf (0-2)
[2019-11-25 14:38] LABS: Bacteria Few /hpf; Mucus Light (0-Heavy); Squamous Epithelial Cells Rare /hpf (Few)
[2019-11-25 14:49] LABS: Alanine Aminotransfer (ALT/SGP 15 U/L (12-78); Albumin, Blood 3.1 g/dL (3.4-5.0); Albumin/Globulin Ratio 0.8 (0.8-1.8); Alk Phos 95 U/L (50-136); Anion Gap 2 mmol/L (6-16); Aspartate Aminotrans (AST/SGOT 19 U/L (12-37); Bilirubin, Total 0.2 mg/dL (0.1-1.0); Blood Urea Nitrogen 18 mg/dL (8-24); CO2, Blood 33 mmol/L (21-32); Calcium, Blood 8.8 mg/dL (8.5-10.1); Chloride, Blood 105 mmol/L (98-108); Glomerular Filtration Rate >60 (60-); Glucose, Blood 130 mg/dL (70-99); Potassium, Blood 4.2 mmol/L (3.5-5.5); Sodium, Blood 140 mmol/L (136-145); Total Protein, Blood 7.1 g/dL (6.4-8.2)
== END 2019-11-25 16:27 | disposition home or self-care (01) ==
LOC: ER 14:01
PROVIDERS: Physician Assistant
DX: R53.1 Weakness (principal); F43.20 Adjustment disorder, unspecified; Z87.891 Personal history of nicotine dependence; Z79.899 Other long term (current) drug therapy; Z79.82 Long term (current) use of aspirin
CPT/HCPCS: 80053; 81001; 85025; 87086; 99283

== ENCOUNTER 2020-01-23 00:34 | Observation (INO) | payer MEDICARE, OTHER ==
[~2020-01-23] VITALS: Ht 182.9 cm; Wt 85.9 kg
[2020-01-23 03:22] LABS: LYMPHOCYTES ABSOLUTE AUTO 0.84 K/mm3 (0.84-5.20); LYMPHOCYTES PERCENT AUTO 9 % (21-46); NEUTROPHILS ABSOLUTE AUTO 7.44 K/mm3 (1.96-9.15)
[2020-01-23 03:31] LABS: BASOPHILS ABSOLUTE AUTO 0.02 K/mm3 (0.00-0.23); BASOPHILS PERCENT AUTO 0 % (0-2); EOSINOPHILS ABSOLUTE AUTO 0.05 K/mm3 (0.00-0.68); EOSINOPHILS PERCENT AUTO 1 % (0-6); Hematocrit 33.6 % (37.0-53.0); Hemoglobin 10.7 g/dL (13.5-17.5); IMMATURE GRAN ABSOLUTE AUTO 0.04 K/mm3 (0.00-0.10); IMMATURE GRAN PERCENT AUTO 0 % (0-1); MONOCYTES ABSOLUTE AUTO 0.54 K/mm3 (0.16-1.47); MONOCYTES PERCENT AUTO 6 % (4-13); Mean Corpuscular HGB 29.2 pg (26.0-34.0); Mean Corpuscular HGB Conc 31.8 g/dL (31.5-36.5); Mean Corpuscular Volume 92 fL (80-100); NEUTROPHILS PERCENT AUTO 83 % (41-73); RDW Coefficient Variation 12.8 % (11.7-14.2); RDW Standard Deviation 42.8 fL (35.1-46.3); Red Blood Cell Count 3.66 M/mm3 (4.30-5.90); White Blood Cell Count 8.93 K/mm3 (4.00-11.30)
[2020-01-23 03:33] LABS: Mean Platelet Volume 10.5 fL (9.1-12.4); Platelet Count 152 K/mm3 (150-400)
[2020-01-23 03:38] LABS: Alanine Aminotransfer (ALT/SGP 16 U/L (12-78); Albumin, Blood 3.2 g/dL (3.4-5.0); Albumin/Globulin Ratio 0.9 (0.8-1.8); Alk Phos 83 U/L (50-136); Anion Gap 4 mmol/L (6-16); Aspartate Aminotrans (AST/SGOT 25 U/L (12-37); Bilirubin, Total 0.4 mg/dL (0.1-1.0); Blood Urea Nitrogen 24 mg/dL (8-24); CO2, Blood 28 mmol/L (21-32); Calcium, Blood 8.9 mg/dL (8.5-10.1); Chloride, Blood 108 mmol/L (98-108); Globulin, Blood 3.6 g/dL (2.2-4.0); Glomerular Filtration Rate >60 (60-); Glucose, Blood 127 mg/dL (70-99); Potassium, Blood 4.2 mmol/L (3.5-5.5); Sodium, Blood 140 mmol/L (136-145); Total Protein, Blood 6.8 g/dL (6.4-8.2)
[2020-01-23] MEDS ORDERED: Percocet 10-321 EACH PO ×2 (04:03→04:04)
[2020-01-23] MEDS ORDERED: FLUT1DIS5 (04:03)
--- NOTE | 2020-01-23 19:11 | NUR ---
SHIFT SUMMARY: NO ACUTE CHANGES TO REPORT THIS SHIFT. PT HX DEMENTIA; ALERT; ORIENTED TO SELF & PLACE; OCC CONFUSION; CALM AND COOPERATIVE WITH CARE. C5/C6 FX; CERVICAL COLLAR IN PLACE; MEDICATED FOR PAIN PER EMAR. COLOSTOMY TO RLQ; APPLIANCE C/D/I; POUCH CHANGED THIS SHIFT. IV REHYDRATION D/C'd THIS SHIFT. PT & OT FOLLOWING. REPORT GIVEN TO ONCOMING RN.
--- NOTE | 2020-01-23 20:16 | NUR ---
ASSUMED CARE OF THE PATIENT FROM DEE MANCERA. LYNNETTE IS IN BED ANXIOUS AND FEELING LIKE HE HAS TO MOVE. STATES HE IS NOT USE TO STAYING IN ONE SPOT BEING CONFINED. AOX3, COOPERATIVE. HAS ABRASIONS NOTED TO FORHEAD AND BRIDGE OF NOSE. C-COLLAR IS ON AND FITTED CORRECTLY. LUNG SOUNDS ARE CLEAR THROUGHOUT, NO SOB OR CONGESTION NOTED. HR REGULAR. ATTENDS DRY. DOES HAVE DISCOLORATION, EDEMA AND SOME ULCERS TO HIS LEGS THAT ARE SHALLOW, OPEN TO AIR. DOES NOT WANT THEM WRAPPED. STATES PAIN IS 9/10. GAVE HIM SCHEDULED OXYCOTIN WITH HIS OTHER MEDS. WILL RECHECK PAIN. DENIES ANY OTHER ISSUES. CALL LIGHT IN REACH.
--- NOTE | 2020-01-23 22:04 | NUR ---
CONCRETE WALL GRINDER OPERATOR CAME TO TELL ME THAT LYNNETTE IS ON HIS CALL LIGHT, WANTING TO GET UP TO THE CHAIR AND BACK TO BED, DOING A BACK AND FORTH. HE IS RESTLESS AND PULLING OUT HIS C-COLLAR PADS PULLING ON THE C-COLLAR AND TURNING HIS HEAD INSIDE OF THE COLLAR. WENT TO THE ROOM AND TALKED WITH HIM ON HOW IMPORTANT IT IS TO NOT MOVE HIS NECK LIKE THAT OR TRY TO ADJUST THE COLLAR. HE SAID HE JUST CAN'T GET COMFORTABLE. HE FEELS HE HAS TO SIT FORWARDS THEN TO THE SIDE, LEGS ARE RESTLESS, AND HE JUST CAN'T STAND IT, HE HAS TO MOVE. STATES HE WAS IN A CONFINEMENT CAMP AND BEING COMFINED LIKE THIS MAKES HIM ANXIOUS. SPOKE TO ELODIA ZUNIGA REGARDING SITUATION. SHE IS PUTTING ORDERS IN FOR FLEXERIAL, AND SOMETHING FOR ANXIETY.
--- NOTE | 2020-01-23 22:27 | NUR ---
ADMINISTERED PAIN MEDICATION, HYDROXAZINE, AND FLEXERAL. WILL RECHECK IN HOUR.
--- NOTE | 2020-01-23 23:07 | NUR ---
LYNNETTE APPEARS TO BE SLEEPY AND HAS DOOZED OFF HERE AND THERE, BUT STATES HE STILL FEELING ANXIOUS, AND HIS LEGS CONTINUE TO WANT TO MOVE. ENCOURAGED HIM TO TRY AND RELAX, GAVE HIM A BLANKET AND TURNED OFF THE LIGHT. CHAIR ALARM IS STILL ON. CALL LIGHT IN REACH.
--- NOTE | 2020-01-24 01:49 | NUR ---
LYNNETTE IS STILL VERY ANXIOUS, NOT ABLE TO SIT STILL. SETTING OFF THE CHAIR ALARM. STATES HE CAN'T STAND IT. ENCOURAGED HIM TO SLEEP, HE SAYS HE CAN'T. CALLED DR. WEBB GOT ORDER FOR ATIVAN 0.5MG PO NOW.
--- NOTE | 2020-01-24 02:30 | NUR ---
RECHECK AFTER ATIVAN WAS GIVEN. WILL IS SITTING IN HIS CHAIR FALLING ASLEEP. LEANED HIM BACK AND COVERED IN WITH SHEET. CHAIR ALARM IS ON. CALL LIGHT IN REACH. WILL CONTINUE TO MONITOR.
--- NOTE | 2020-01-24 03:19 | NUR ---
LYNNETTE IS REQUESTING TO USE THE BATHROOM. GEL COATER AND I GOT HIM STANDING TO USE URINAL. HE IS VERY UNSTEADY AND LEANS NOT BEING ABLE TO STAND UP STRAIGHT.HE HAD THE PADS OUT FROM UNDERNEATH THE C-COLLAR. HE WAS UNABLE TO VOID AND APPEARED SLIGHTLY CONFUSED. HE IS HAVING SOME DISCHARGE FROM HIS ANUS, VERY LITTLE AMOUNTS. SAT HIM BACK INTO THE CHAIR AND CHAIR ALARM IS ON. TALKED WITH MAIL HANDLERS SUPERVISOR ABOUT POSSIBLE MOVE TO BACK ROBLES.
--- NOTE | 2020-01-24 04:00 | NUR ---
LYNNETTE IS RESTLESS AGAIN, PULLED OUT PADS ON HIS COLLAR, AND LOOSENED THE COLLAR UP WHERE HE WAS MOVING HIS HEAD AROUND. STATING "I CAN'T STAND IT." INFORMED AGAIN OF THE CONCERNS. ASKED HIM IF HE UNDERSTOOD. HE STATED "YA THE METHADONE HELPS WITH BEHAVIORS." HE SAID HE WAS IN PAIN, THEREFORE, GAVE HIM OXYCOTIN. TALKED TO CHONG CHARGE ABOUT MOVING TO [facility]. TO BE TRASFERRED TO ROOM 344.
--- NOTE | 2020-01-24 04:34 | NUR ---
REPORT GIVEN TO ELLIOTT WHO WILL BE ASSUMEING CARE IN THE SPECIAL CARE UNIT. PATIENT TRANSFERRED TO ROOM 344 BY CHAIR.
--- NOTE | 2020-01-24 04:43 | NUR ---
SHIFT SUMMARY: LYNNETTE HAS GOTTEN MORE CONFUSED AND AGITATED THE NIGHT WENT ON. FIRST ONLY WANTING TO BE TRANSFERRED BACK AND FORTH FROM THE BED TO THE CHAIR. HE HAS BEEN VERY ANXIOUS AND RESTLESS MOVING AROUND IN HIS CHAIR, LEANING FORWARD, PULLING OFF THE PADS ON HIS C-COLLAR. CALLED ELODIA ASSISTANT MEDIA PLANNER GOT ORDERS FOR HYDROXAZINE AND FLEXERAL. THIS DID NOT SEEM TO HELP. HE CONTINUED TO ADJUST HIS COLLAR, PULLING OUT THE PADS, GETTING UP SETTING OFF THE CHAIR ALARM, AND WOULD ROCK BACK AND FORTH IN THE CHAIR. HE CONTINUED TO TELL ME THAT THE COLLAR IS RUBBING HIS CHECKS BUT HE WOULD NOT LEAVE THE PADS IN. EVENTUALLY CALLED DR. TIPTON AND GOT 0.5MG OF ATIVAN. HE FELL ASLEEP ONLY FOR ABOUT 45 MINUTES THEN HE WAS BACK AT TRYING TO TAKE HIS C-COLLAR OFF. PAIN HAS BEEN CONTROLLED WITH OXYCOTIN EVIDENCE BY DECREASE TO 6/10. IV IN LEFT WRIST REMOVED FROM HIM MESSING WITH IT AND IT WAS LEAKING. RESTARTED 20G IN LEFT AC THAT FLUSHED WELL. OSTOMY APPLIANCE STILL INTACT AND DRAINING LIQUID BROWN STOOL. INCONTIENT OF URINE. 2 + PERSON ASSIST. VERY HIGH FALL RISK. DUE TO THE CONFUSION, RESTLESSNESS, AND NEED TO CONTANTLY BE IN THE ROOM TO MONITOR HIS BEHAVIORS, CHARGE WAS INFORMED AND PATIENT WAS MOVED BACK TO SPECIAL CARE UNIT ROOM 344 FOR THE REST OF THE SHIFT.
--- NOTE | 2020-01-24 04:52 | NUR ---
0434 REPORT RECIEVED FROM KETAN MANCERA. PT TRANSFERED TO ROOM VIA RECLINER CHAIR. PT FEELS MORE COMFORTABLE IN RECLINER CHAIR THAN IN THE BED PER PER REPORT. PT FREQUENTLY TUGS AT C-COLLAR. HE RATED HIS PAIN 10/10. MEDICATED PAIN PER EMAR. PT REMINDED NOT TO PULL AT COLLAR. WILL CONTIUE TO MONITOR.
[2020-01-24] MEDS ORDERED: SENN187 PO (12:19)
[2020-01-24] MEDS ORDERED: ROXICODONE5 MG PO (12:20)
--- NOTE | 2020-01-24 12:32 | NUR ---
DISCHARGE PT TO BE DISCHARGED TO TODAY, REPORT CALLED TO EDNA RN, QUESTIONS ANSWERED. EDNA INFORED THIS RN AVAILABLE UNTIL 1900 TODAY IF ANY FURTHER QUESTIONS ARISE.
== END 2020-01-24 12:42 ==
LOC: ER 00:34 → MEDS 00:35 → ENPENDDIS 01-24 11:48 → MEDS 01-24 12:42
PROVIDERS: Emergency Medicine; ADMIT Internal Medicine
DX: S12.401A Unspecified nondisplaced fracture of fifth cervical vertebra, initial encounter for closed fracture (principal); S12.501A Unspecified nondisplaced fracture of sixth cervical vertebra, initial encounter for closed fracture; M19.90 Unspecified osteoarthritis, unspecified site; G89.29 Other chronic pain; I48.20 Chronic atrial fibrillation, unspecified; I25.10 Atherosclerotic heart disease of native coronary artery without angina pectoris; J44.9 Chronic obstructive pulmonary disease, unspecified; E44.0 Moderate protein-calorie malnutrition; Z93.2 Ileostomy status; Z95.0 Presence of cardiac pacemaker; Z95.1 Presence of aortocoronary bypass graft; Z79.899 Other long term (current) drug therapy; Z88.2 Allergy status to sulfonamides; Z88.8 Allergy status to other drugs, medicaments and biological substances; W18.30XA Fall on same level, unspecified, initial encounter
CPT/HCPCS: 70450; 71045; 72125; 72170; 80053; 85025; 96361; 96372; 96374; 96375; 97110; 97162; 97166; 97530; 99285-25; A9270; G0378; J1170; J1630; J1650; J1885; J3010; J7030; L0160

== ENCOUNTER → 2020-02-11 | Outpatient (CLI) | payer MEDICARE, OTHER ==
[~2020-02-11] MED LIST changes: +FLUT1DIS5; +ROXICODONE5 MG PO; +SENN187 PO
== END | disposition home or self-care (01) ==
LOC: LAB HH 14:20
DX: L03.115 Cellulitis of right lower limb (principal); R60.0 Localized edema
CPT/HCPCS: 87070; 87205